=== PATIENT | female | born 1960 | race Caucasian/White ===

== ENCOUNTER 2017-04-02 10:34 | Inpatient (IN) | payer OTHER ==
[~2017-04-02 10:34] MED LIST: AUGMENTIN 500-1 EAC2 PO; AUGMENTIN 875-11 TAB PO; CHLORDIAZEPOXID10 M1 PO; EFFEXOR37.5 MG; LEXAPRO20 MG; LITHATE5 M1 PO; NO HOME MEDICATION XX; OMEPRAZOLE20 M3 PO; PROTONIX40 M2 PO; ULTRAM50 MG PO; VITAMIN B-1100 M3 PO; ZOFRAN ODT4 MG PO
[2017-04-02 13:26] LABS: BASO % 0.1 % (0-2); HCT-HEMATOCRIT 41.9 % (34.0-49.0); HGB-HEMOGLOBIN 14.2 gm/dl (12.0-15.5); IMMATURE GRANULOCYTES ABSOLUTE 0.06 tho/cmm (0-0.03); IMMATURE GRANULOCYTES PERCENT 0.7 % (0-0.3); LYMPH % 6.6 % (20-45); LYMPH ABSOLUTE COUNT 0.5 tho/cmm (0.8-4.5); MCH (MEAN CORPUSCULAR HGB) 37.9 pg (28.0-32.0); MCHC MEAN CORPUSCULAR HGB CONC 33.9 % (32.0-36.0); MCV (MEAN CELL VOLUME) 111.7 fl (82.0-96.0); MEAN PLATELET VOLUME 10.2 cmc (9.4-12.4); MONO % 9.6 % (0-12); MONOCYTE ABSOLUTE COUNT 0.8 tho/cmm (0.0-1.2); NEUTROPHIL ABSOLUTE COUNT 6.8 tho/cmm (1.6-8.0); NEUTROPHIL-AUTOMATED 6.8 tho/cmm (1.6-8.0); PLATELET COUNT 114 tho/cmm (150-450); RED BLOOD COUNT 3.75 mil/cmm (4.00-5.20); RED CELL DISTRIBUTION WIDTH 12.9 % (12.4-16.4); WHITE BLOOD COUNT 8.2 tho/cmm (4.0-10.0)
[2017-04-02 13:42] LABS: ALB/GLOB RATIO 1.2 (0.8-2.0); ALBUMIN 4.1 g/dl (3.5-5.0); ALCOHOL (ETOH) <10 mg/dl (<10); ALKALINE PHOSPHATASE 62 U/L (33-138); ALT/SGPT 160 U/L (12-78); ANION GAP 37 mmol/L (0-20); BILIRUBIN,TOTAL 0.9 mg/dl (0-1.5); BLOOD UREA NITROGEN 23 mg/dl (6-24); CALCIUM 8.2 mg/dl (8.5-10.5); CHLORIDE 103 mmol/l (96-110); CREATININE 1.03 mg/dl (0.50-1.10); GLUCOSE 130 mg/dL (70-110); SODIUM 142 mmol/L (135-145); eGFR VALUE FOR BLACK 71 mL/Min
[2017-04-02 13:43] LABS: AST/SGOT 285 U/L (10-40); MAGNESIUM 1.9 mg/dl (1.8-2.6); POTASSIUM 4.2 mmol/L (3.7-5.1)
[2017-04-02 13:44] LABS: CARBON DIOXIDE-VENOUS 6 mmol/L (22-32)
[2017-04-02 14:06] LABS: PROTHROMBIN TIME 11.4 SECONDS (9.0-13.6)
[2017-04-02 14:15] LABS: ARTERIAL BLD GAS O2 SATURATION 97 % (95-98); ARTERIAL PO2 115 mmHg (70-100); BICARBONATE 6 mmol/L (21-28); BLOOD GAS BASE EXCESS -22 mM/L (-/+3)
[2017-04-02 14:18] LABS: ABG CO2 ARTERIAL 6 mmol/L (21-27); ARTERIAL BLOOD GAS PCO2 17 mmHg (32-45); PH 7.16 Units (7.35-7.45)
[2017-04-02] MEDS ORDERED: NO HOME MEDICATION XX (14:24)
[2017-04-02] MEDS ORDERED: SINGULAIR10 M1 PO (14:29)
[2017-04-02] MEDS ORDERED: FLONASE ALLERG9.9 ML (14:30)
[2017-04-02] MEDS ORDERED: TOBRAMYCIN5 ML OP (14:30)
[2017-04-02] MEDS ORDERED: SYMBICORT 80-41 PUFF INH (14:31)
[2017-04-02] MEDS ORDERED: TYLENOL PM EX-1 EAC4 PO (14:31)
[2017-04-02 14:53] LABS: LIPASE 1040 U/L (73-393); PHOSPHOROUS 4.5 mg/dl (2.5-4.9); SALICYLATE 3.7 mg/dl (2.8-20)
[2017-04-02 14:55] LABS: ACETAMINOPHEN LEVEL <2 ug/ml (10-30)
[2017-04-02 14:56] LABS: OSMOLALITY 323 mOsm/kg (275-295)
[2017-04-02 15:03] LABS: KETONE-BETA (WHOLE BLOOD) >6.0 mmol/L (0.0-0.6)
[2017-04-02 19:05] LABS: URINE BILIRUBIN NEGATIVE (NEG); URINE BLOOD MODERATE (NEG); URINE GLUCOSE (UA) NEGATIVE (NEG); URINE KETONE LARGE (NEG); URINE LEUKOCYTE ESTERASE POSITIVE (NEG); URINE NITRITE NEGATIVE (NEG); URINE PROTEIN MODERATE (NEG)
[2017-04-02 19:08] LABS: URINE APPEARANCE HAZY; URINE COLOR YELLOW
[2017-04-02 19:16] LABS: URINE AMORPHOUS 1+
[2017-04-02 22:41] LABS: ARTERIAL BLD GAS O2 SATURATION 97 % (95-98); BLOOD GAS BASE EXCESS -10 mM/L (-/+3)
[2017-04-02 22:44] LABS: ARTERIAL BLOOD GAS PCO2 22 mmHg (32-45); ARTERIAL PO2 82 mmHg (70-100); PH 7.39 Units (7.35-7.45)
[2017-04-02 22:45] LABS: ABG CO2 ARTERIAL 14 mmol/L (21-27)
[2017-04-02 22:46] LABS: BICARBONATE 13 mmol/L (21-28)
[2017-04-03 04:04] LABS: KETONE-BETA (WHOLE BLOOD) 1.8 mmol/L (0.0-0.6)
[2017-04-03 04:14] LABS: ALB/GLOB RATIO 1.1 (0.8-2.0); ALBUMIN 3.1 g/dl (3.5-5.0); ALKALINE PHOSPHATASE 46 U/L (33-138); ALT/SGPT 107 U/L (12-78); AMYLASE 78 U/L (20-90); AST/SGOT 158 U/L (10-40); BILIRUBIN,DIRECT 0.3 mg/dl (0.0-0.3); BILIRUBIN,INDIRECT 0.8 mg/dL (0.0-1.0); BILIRUBIN,TOTAL 1.1 mg/dl (0-1.5); BLOOD UREA NITROGEN 8 mg/dl (6-24); CALCIUM 7.4 mg/dl (8.5-10.5); CARBON DIOXIDE-VENOUS 23 mmol/L (22-32); CHLORIDE 102 mmol/l (96-110); GLUCOSE 177 mg/dL (70-110); MAGNESIUM 1.5 mg/dl (1.8-2.6); SODIUM 138 mmol/L (135-145)
[2017-04-03 04:25] LABS: BASO % 0.3 % (0-2); HCT-HEMATOCRIT 31.5 % (34.0-49.0); HGB-HEMOGLOBIN 11.1 gm/dl (12.0-15.5); IMMATURE GRANULOCYTES ABSOLUTE 0.01 tho/cmm (0-0.03); IMMATURE GRANULOCYTES PERCENT 0.3 % (0-0.3); LYMPH % 10.4 % (20-45); LYMPH ABSOLUTE COUNT 0.4 tho/cmm (0.8-4.5); MCH (MEAN CORPUSCULAR HGB) 37.4 pg (28.0-32.0); MCHC MEAN CORPUSCULAR HGB CONC 35.2 % (32.0-36.0); MEAN PLATELET VOLUME 10.2 cmc (9.4-12.4); MONO % 11.5 % (0-12); MONOCYTE ABSOLUTE COUNT 0.4 tho/cmm (0.0-1.2); NEUTROPHIL ABSOLUTE COUNT 2.9 tho/cmm (1.6-8.0); NEUTROPHIL-AUTOMATED 2.9 tho/cmm (1.6-8.0); NEUTROPHILS % 77.5 % (40-80); PLATELET COUNT 69 tho/cmm (150-450); RED BLOOD COUNT 2.97 mil/cmm (4.00-5.20); RED CELL DISTRIBUTION WIDTH 12.3 % (12.4-16.4)
[2017-04-03 04:37] LABS: ARTERIAL BLD GAS O2 SATURATION 98 % (95-98); ARTERIAL BLOOD GAS PCO2 30 mmHg (32-45); ARTERIAL PO2 87 mmHg (70-100); BLOOD GAS BASE EXCESS 1 mM/L (-/+3); PH 7.49 Units (7.35-7.45)
[2017-04-03 04:38] LABS: ABG CO2 ARTERIAL 24 mmol/L (21-27); BICARBONATE 23 mmol/L (21-28)
[2017-04-03 04:46] LABS: ANION GAP 16 mmol/L (0-20); POTASSIUM 3.2 mmol/L (3.7-5.1)
[2017-04-03 04:47] LABS: CREATININE 0.44 mg/dl (0.50-1.10); LIPASE 720 U/L (73-393); eGFR VALUE FOR BLACK >90 mL/Min
[2017-04-03 04:50] LABS: PHOSPHOROUS 0.4 mg/dl (2.5-4.9)
[2017-04-03 05:01] LABS: MCV (MEAN CELL VOLUME) 106.1 fl (82.0-96.0); WHITE BLOOD COUNT 3.7 tho/cmm (4.0-10.0)
[2017-04-03 05:40] LABS: ALB/GLOB RATIO 1.1 (0.8-2.0); ALBUMIN 3.2 g/dl (3.5-5.0); ALKALINE PHOSPHATASE 49 U/L (33-138); ALT/SGPT 111 U/L (12-78); ANION GAP 13 mmol/L (0-20); AST/SGOT 156 U/L (10-40); BILIRUBIN,TOTAL 1.1 mg/dl (0-1.5); BLOOD UREA NITROGEN 8 mg/dl (6-24); CALCIUM 7.4 mg/dl (8.5-10.5); CARBON DIOXIDE-VENOUS 25 mmol/L (22-32); CHLORIDE 102 mmol/l (96-110); CREATININE 0.49 mg/dl (0.50-1.10); GLUCOSE 155 mg/dL (70-110); MAGNESIUM 1.5 mg/dl (1.8-2.6); POTASSIUM 3.2 mmol/L (3.7-5.1); SODIUM 137 mmol/L (135-145); eGFR VALUE FOR BLACK >90 mL/Min
[2017-04-03 05:48] LABS: PHOSPHOROUS 0.4 mg/dl (2.5-4.9)
[2017-04-03 16:07] LABS: POTASSIUM 3.7 mmol/L (3.7-5.1)
[2017-04-03 16:16] LABS: PHOSPHOROUS 0.7 mg/dl (2.5-4.9)
--- NOTE | 2017-04-03 16:49 | NUR ---
1620 CALLED [facility] OF 0.7, AND K-3.[address] MILLER, ORDER RECIEVED TO GIVE 30MM OF KPHOS, 1540 STARTED KPHOS ORDERED.
[2017-04-04 01:25] LABS: ANION GAP 18 mmol/L (0-20); BLOOD UREA NITROGEN 6 mg/dl (6-24); CALCIUM 8.3 mg/dl (8.5-10.5); CARBON DIOXIDE-VENOUS 22 mmol/L (22-32); CHLORIDE 102 mmol/l (96-110); CREATININE 0.39 mg/dl (0.50-1.10); GLUCOSE 84 mg/dL (70-110); PHOSPHOROUS 1.5 mg/dl (2.5-4.9); SODIUM 138 mmol/L (135-145); eGFR VALUE FOR BLACK >90 mL/Min
[2017-04-04 01:48] LABS: POTASSIUM 3.6 mmol/L (3.7-5.1)
[2017-04-04 04:53] LABS: ANION GAP 18 mmol/L (0-20); BLOOD UREA NITROGEN 6 mg/dl (6-24); CALCIUM 8.2 mg/dl (8.5-10.5); CARBON DIOXIDE-VENOUS 21 mmol/L (22-32); CHLORIDE 101 mmol/l (96-110); CREATININE 0.33 mg/dl (0.50-1.10); GLUCOSE 83 mg/dL (70-110); MAGNESIUM 1.6 mg/dl (1.8-2.6); PHOSPHOROUS 1.9 mg/dl (2.5-4.9); POTASSIUM 3.5 mmol/L (3.7-5.1); SODIUM 136 mmol/L (135-145); eGFR VALUE FOR BLACK >90 mL/Min
[2017-04-04 10:53] LABS: EOS % 0.6 % (0-7); HCT-HEMATOCRIT 33.6 % (34.0-49.0); IMMATURE GRANULOCYTES ABSOLUTE 0.01 tho/cmm (0-0.03); IMMATURE GRANULOCYTES PERCENT 0.3 % (0-0.3); LYMPH % 18.1 % (20-45); LYMPH ABSOLUTE COUNT 0.6 tho/cmm (0.8-4.5); MCH (MEAN CORPUSCULAR HGB) 37.2 pg (28.0-32.0); MCHC MEAN CORPUSCULAR HGB CONC 35.7 % (32.0-36.0); MEAN PLATELET VOLUME 11.1 cmc (9.4-12.4); MONO % 9.8 % (0-12); MONOCYTE ABSOLUTE COUNT 0.3 tho/cmm (0.0-1.2); NEUTROPHIL ABSOLUTE COUNT 2.2 tho/cmm (1.6-8.0); NEUTROPHIL-AUTOMATED 2.2 tho/cmm (1.6-8.0); NEUTROPHILS % 71.2 % (40-80); PLATELET COUNT 57 tho/cmm (150-450); RED BLOOD COUNT 3.23 mil/cmm (4.00-5.20); RED CELL DISTRIBUTION WIDTH 12.3 % (12.4-16.4); WHITE BLOOD COUNT 3.2 tho/cmm (4.0-10.0)
[2017-04-04 11:08] LABS: ANION GAP 17 mmol/L (0-20); BLOOD UREA NITROGEN 7 mg/dl (6-24); CALCIUM 8.4 mg/dl (8.5-10.5); CARBON DIOXIDE-VENOUS 24 mmol/L (22-32); CHLORIDE 102 mmol/l (96-110); CREATININE 0.48 mg/dl (0.50-1.10); POTASSIUM 3.6 mmol/L (3.7-5.1); SODIUM 139 mmol/L (135-145); eGFR VALUE FOR BLACK >90 mL/Min
[2017-04-04 11:09] LABS: GLUCOSE 127 mg/dL (70-110)
[2017-04-04 19:43] LABS: MAGNESIUM 1.6 mg/dl (1.8-2.6); POTASSIUM 3.2 mmol/L (3.7-5.1)
[2017-04-05 06:14] LABS: ANION GAP 14 mmol/L (0-20); BLOOD UREA NITROGEN 9 mg/dl (6-24); CALCIUM 8.6 mg/dl (8.5-10.5); CARBON DIOXIDE-VENOUS 23 mmol/L (22-32); CHLORIDE 104 mmol/l (96-110); GLUCOSE 122 mg/dL (70-110); MAGNESIUM 2.2 mg/dl (1.8-2.6); PHOSPHOROUS 2.2 mg/dl (2.5-4.9); POTASSIUM 3.6 mmol/L (3.7-5.1); SODIUM 137 mmol/L (135-145); eGFR VALUE FOR BLACK >90 mL/Min
[2017-04-05] MEDS ORDERED: METOPROLOL TART25 M1 PO (13:45)
[2017-04-05] MEDS ORDERED: PROTONIX40 M2 PO (13:46)
[2017-05-18] MEDS ORDERED: OXYCONTIN10 M2 (18:02)
[2017-05-21] MEDS ORDERED: CHLORDIAZEPOXID25 M1 PO (11:06)
== END 2017-04-05 14:43 | DRG 641 ==
LOC: EDMED 10:34 → EMR2 15:11 → CCU 18:33 → 5WE 04-04 19:45
PROVIDERS: Emergency Medicine; Family Medicine; Internal Medicine Nephrology; ADMIT Internal Medicine
PROC: 02HV33Z Insertion of Infusion Device into Superior Vena Cava, Percutaneous Approach (ICD-10-PCS; principal; 2017-04-02)
DX: E87.2 Acidosis (principal); D61.818 Other pancytopenia; D69.6 Thrombocytopenia, unspecified; I47.1 Supraventricular tachycardia; F10.10 Alcohol abuse, uncomplicated; I34.0 Nonrheumatic mitral (valve) insufficiency; K21.9 Gastro-esophageal reflux disease without esophagitis
CPT/HCPCS: C1751; C1752; C8929; C9113; G0480; J0153; J1170; J1644; J2060; J2405; J3010; J3475; J3480; J7030; J7050